=== PATIENT | male | born 1955 | race Caucasian/White ===

== ENCOUNTER 2021-01-07 07:50 | Emergency (ER) | payer MEDICARE, SELFPAY ==
[2021-01-07 07:59] VITALS: BP 133/76; PULSE 69; RESP 18; TEMP 36.5; O2SAT 96; BMI 31.3
--- NOTE | 2021-01-07 08:25 | ED_ITS ---
HPI - Male Genitourinary General: Chief complaint: Abdominal Pain Stated complaint: poss kidney stone Time Seen by Provider: 01/07/21 07:53 History of Present Illness: HPI Narrative: 65-year-old male presents with right flank pain. He has a history of renal stones states feels same as previous. He has pain on the right flank. His urine has been dark but it has not been frankly hematuric. He is not had any fever sweats or chills. MD Complaint: other (Right flank pain) Onset (ago): hour(s) Duration: constant Location: right flank Radiation: right inguinal region Severity: severe Quality: sharp Relieving factors: none Exacerbating factors: none Associated symptoms: Reports nausea; Deny discharge, dysuria, fevers/chills, hematuria, rash, swelling, urinary incontinence, urinary retention, mass or vomiting Review of Systems Const: Denies: fever(s), chills, body aches, change in appetite, fatigue or malaise ENMT: Denies: throat pain, ear or mastoid pain, nasal discharge or nasal congestion Card: Denies: chest pain, edema, dyspnea on exertion or orthopnea Resp: Denies: dyspnea, productive cough or non-productive cough GI: Reports: nausea; Denies: vomiting : Denies: dysuria, urinary incontinence or hematuria Skin/Breast: Denies: rash or pruritus Physical Exam Const: COMMON NORMALS: no acute distress GENERAL APPEARANCE: cooperative an d comfortable ORIENTATION/CONSCIOUSNESS: Yes awake, Yes oriented to person, Yes oriented to place and Yes oriented to time HENMT: COMMON NORMALS: normocephalic, atraumatic and hearing grossly normal bilaterally HEAD & SCALP: normocephalic and atraumatic Neck/C-Spine: COMMON NORMALS: no JVD Resp: COMMON NORMALS: normal respiratory effort, No retractions, No use of accessory muscles and clear to auscultation bilaterally AUSCULTATION: clear to auscultation bilaterally Cardio: COMMON NORMALS: no JVD, regular rate, regular rhythm and No murmurs present (Cardio) RATE: regular rate RHYTHM: regular rhythm GI: COMMON NORMALS: Soft to palpation and No hepatosplenomegaly present AUSCULTATION: Yes normoactive bowel sounds PALPATION: Yes Soft to palpation, No Tenderness to palpation present (GI), No Guarding due to palpation present (GI) and Yes No hepatosplenomegaly present : BLADDER/KIDNEY EXAM: Yes CVA tenderness Back/Pelvis: GENERAL BACK: Yes CVA tenderness CVA tenderness: right Extremity: COMMON NORMALS: normal to inspection, capillary refill normal, no clubbing, cyanosis or edema, no calf tenderness and no pedal edema Neuro: SENSORIUM/ORIENTATION: Yes oriented to person, Yes oriented to place and Yes oriented to time Skin: COMMON NORMALS: no rashes or lesions noted GENERAL SKIN EXAM: no rashes or lesions noted Course Vital Signs: Vital signs: Vital Signs Temperature 97.7 F 01/07/21 07:59 Pulse Rate 59 L 01/07/21 09:45 Respiratory Rate 14 01/07/21 09:45 Blood Pressure 139/80 01/07/21 09:45 Pulse Oximetry 95 01/07/21 09:45 MDM - Male MDM Narrative: Medical decision making narrative: Right 2 mm UVJ stone. Pain is well controlled discharged home on tamsulosin hydrocodone Zofran strain urine follow-up with PCP when he arrives at home he is vacationing in this area return if his pain is uncontrolled. Lab Data: Labs: Lab Results 01/07/21 01/07/21 01/07/21 Range/Units 08:35 08:35 08:35 WBC 14.6 H (4.0-10.0) 10^3/ uL RBC 4.87 (4.1-5.3) 10^6/u L Hgb 16.3 (11.7-16.6) g/dL Hct 48.8 (42.0-52.0) % MCV 100.2 H (80-94) fL MCH 33.5 (28.0-34.0) pg MCHC 33.4 (30.0-36.0) g/dL RDW 12.2 (12.1-15.1) % Plt Count 159 (130-400) 10^3/c mm MPV 10.4 (7.4-10.4) fL Neut % (Auto) 77.5 % Lymph % (Auto) 14.1 % [place] % (Auto) 4.7 % Eos % (Auto) 2.7 % Baso % (Auto) 0.5 % Neut # (Auto) 11.28 H (1.8-7.7) 10^3/u L Lymph # (Auto) 2.1 (0.8-4.8) 10^3/u L [place] # (Auto) 0.7 (0.2-0.9) 10^3/u L Eos # (Auto) 0.4 (0.0-0.8) 10^3/u L Baso # (Auto) 0.1 (0.0-0.1) 10^3/u L Nucleated RBC % (a uto) 0 % Nucleated RBCs # 0.0 /100WBC Sodium 141 (136-145) mmol/L Potassium 4.5 (3.5-5.1) mmol/L Chloride 105 (98-107) mmol/L Carbon Dioxide 26 (22-29) mmol/L Anion Gap 14.5 (5-19) BUN 14 (8-23) mg/dL Creatinine 0.9 (0.7-1.2) mg/dL GFR Calculation 85.0 L (90-130) mL/min Glucose 99 (65-115) mg/dL Calculated Osmolal ity 293 (285-295) mOsm/k g Calcium 9.1 (8.5-10.5) mg/dL Total Bilirubin 0.4 (0.15-1.2) mg/dL AST 16 (0-40) U/L ALT 12 (0-41) U/L Alkaline Phosphata se 62 (40-130) IU/L Total Protein 6.1 L (6.6-8.7) g/dL Albumin 4.1 (3.5-5.2) g/dL Globulin 2.0 (1.3-4.6) g/dL Urine Color Yellow (Yellow) Urine Appearance Clear (CLEAR) Urine pH 5 (5-7) Ur Specific Gravit y 1.025 (1.005-1.030) Urine Protein Neg (Negative) Urine Glucose (UA) Norm (Normal) Urine Ketones Negative (Negative) Urine Blood Neg (Negative) Urine Nitrate Negative (Negative) Urine Bilirubin 1+ H (Negative) Urine Urobilinogen 1 H (Negative) mg/dL Ur Leukocyte Minnie ase Negative (Negative) Discharge Plan Discharge Patient Disposition: Home Clinical Impression: Calculus of kidney Condition: Stable Prescriptions: New hydrocodone-acetaminophen 5-325 mg tablet 1 tab PO Q6H PRN (Reason: pain) Qty: 25 RF: 0 Zofran 4 mg tablet 4 mg PO Q6H PRN (Reason: nausea and vomiting) Qty: 20 RF: 0 tamsulosin 0.4 mg capsule 0.4 mg PO DAILY Qty: 20 RF: 0 Discharge Orders: Discharge ED (Routine); Ordered 01/07/21 Ordered By: Benjamin Bose Referrals: NOT ON FILE,DOCTOR [Primary Care Provider] - Discharge Diet: Usual diet Discharge Activity: Increase activity as tolerated Patient Instructions: Opioid Safety Activity Restrictions/Additional Instructions: Strain urine to correct stone. Follow-up with urology through your primary care doctor as soon as you return home. Turn to the ER if pain is uncontrolled. Coding Level of Care Code ED [employer] for Alan De La Cruz
--- NOTE | 2021-01-07 08:39 | CT_ITS ---
WS: [id number] CT ABDOMEN PELVIS TECHNIQUE: Noncontrast CT of the abdomen and pelvis with coronal and sagittal reformatted images. CLINICAL INFORMATION: flank pain COMPARISON: None. DLP: 1517.[address] scans at [facility] use at least one of these dose optimization techniques: automat ed exposure control; mA and/or kV adjustment per patient size (includes targeted exams where dose is matched to clinical indication); or iterative reconstruction. FINDINGS: Mild right hydronephrosis. Inflammatory changes and edema about the right kidney. Mild right ureterec tasis. Tiny calculus in the right UVJ measuring 2.7 mm. No hydronephrosis in the left kidney. Tiny barragan bcentimeter left calyceal tip calculi. Small left renal cyst measuring 2.1 CM. Adrenal glands are nor mal. Lung bases are well aerated. No significant hiatal hernia. Sigmoid diverticulosis. No evidence of acute diverticulitis. Prostate calcification. Tiny fat-contain ing umbilical hernia.Chronic spondylolysis L5-S1 with slight anterolisthesis measuring [address]/CT kidney stone [id number] IMPRESSION: 1. Mild right hydronephrosis with inflammatory stranding and edema about the r ight kidney. Mild right ureterectasis with obstructing 2.7 mm calculus right UV J. 2. Sigmoid diverticulosis. No evidence of acute diverticulitis. Notified Benjamin Bose DO at 01/07/2021 9:50 AM.
[2021-01-07 08:43] LABS: Add Urine Microscopic? NO; Charge for UA Resulting for Rev
[2021-01-07 08:47] LABS: Basophils # 0.1 10^3/uL (0.0-0.1); Basophils % 0.5 %; Eosinophils # 0.4 10^3/uL (0.0-0.8); Eosinophils % 2.7 %; Hematocrit 48.8 % (42.0-52.0); Hemoglobin 16.3 g/dL (11.7-16.6); Lymphocytes # 2.1 10^3/uL (0.8-4.8); Lymphocytes % 14.1 %; Mean Corpuscular HGB Conc 33.4 g/dL (30.0-36.0); Mean Corpuscular Hemoglobin 33.5 pg (28.0-34.0); Mean Corpuscular Volume 100.2 fL (80-94); Mean Platelet Volume 10.4 fL (7.4-10.4); Monocytes # 0.7 10^3/uL (0.2-0.9); Monocytes % 4.7 %; Neutrophils # 11.28 10^3/uL (1.8-7.7); Neutrophils % 77.5 %; Nucleated Red Blood Cells % 0 %; Platelet Count 159 10^3/cmm (130-400); Red Blood Count 4.87 10^6/uL (4.1-5.3); Red Cell Distribution Width 12.2 % (12.1-15.1); White Blood Count 14.6 10^3/uL (4.0-10.0)
[2021-01-07 08:55] LABS: Urine Appearance Clear (CLEAR); Urine Color Yellow (Yellow)
[2021-01-07 08:56] LABS: Bilirubin Urine 1+ (Negative); Blood Urine Neg (Negative); Glucose Urine UA Norm (Normal); Ketones Urine Negative (Negative); Leukocyte Esterase Urine Negative (Negative); Nitrate Urine Negative (Negative); Protein Urine Neg (Negative); Specific Gravity, Urine 1.025 (1.005-1.030); Urobilinogen Urine 1 mg/dL (Negative); pH Urine 5 (5-7)
[2021-01-07] MEDS: ondansetron 2 mg/ML SDV 2 mL 4 MG IVP (08:59)
[2021-01-07 09:06] VITALS: RESP 16; O2SAT 97
[2021-01-07 09:06] LABS: Alanine Aminotransferase 12 U/L (0-41); Albumin Level 4.1 g/dL (3.5-5.2); Alkaline Phosphatase 62 IU/L (40-130); Blood Urea Nitrogen 14 mg/dL (8-23); Calcium 9.1 mg/dL (8.5-10.5); Carbon Dioxide 26 mmol/L (22-29); Chloride 105 mmol/L (98-107); Glucose 99 mg/dL (65-115); Osmolality Calculated 293 mOsm/kg (285-295); Sodium 141 mmol/L (136-145); Total Bilirubin 0.4 mg/dL (0.15-1.2); Total Protein 6.1 g/dL (6.6-8.7)
[2021-01-07] MEDS: morphine 4 mg/mL SDV 1 mL IVP ×2 (09:06→10:20)
[2021-01-07 09:10] LABS: Anion Gap 14.5 (5-19); Aspartate Amino Transferase 16 U/L (0-40); Potassium 4.5 mmol/L (3.5-5.1)
[2021-01-07 09:16] VITALS: BP 145/79; PULSE 63; RESP 16; O2SAT 99
[2021-01-07 09:45] VITALS: BP 139/80; PULSE 59; RESP 14; O2SAT 95
[2021-01-07 10:20] VITALS: BP 124/75; PULSE 68; RESP 16; O2SAT 96
[2021-01-07 10:31] VITALS: BP 124/75; PULSE 68; RESP 16; O2SAT 96
== END 2021-01-07 10:24 | disposition home or self-care (01) ==
PROVIDERS: Physician Assistant; Emergency Provider Family Medicine
DX: N20.0 Calculus of kidney (principal)
CPT/HCPCS: 74176; 80053; 81003; 85025; 96374; 96375; 96376; 99284; J2270; J2405